=== PATIENT | female | born 1990 | race Caucasian/White ===

== ENCOUNTER 2020-04-12 13:19 | Emergency (ER) | payer OTHER ==
[~2020-04-12] VITALS: Ht 167.6 cm; Wt 97.1 kg
[2020-04-12 13:23] VITALS: BP 162/80
[2020-04-12] MEDS ORDERED: ONDANSETRON 4 MG ODT PO ONE (15:15)
[2020-04-12] MEDS ORDERED: KETOROLAC 30 MG/ML VIAL IM ONE (15:15)
[2020-04-12] MEDS ORDERED: NACL 0.9% 1,000 ML IV ONE (15:35)
--- NOTE | 2020-04-12 15:44 | NUR ---
Patient taken to CT via wheelchair
--- NOTE | 2020-04-12 15:45 | NUR ---
LABS DRAWN AND SENT TO LAB TO [facility]
--- NOTE | 2020-04-12 15:50 | NUR ---
29 Y/O F BIB SELF C/O LEFT FLANK PAIN X 6 HRS. PT STATES THAT TODAY AT 10AM, SHE EXPERIENCED 10/10 LEFT FLANK PAIN, DULL/CONSTANT THAT RADIATES TO HER LEFT ABDOMEN. PT ALSO STATES ASSOCIATED NAUSEA. PT STATES SHE TOOK TYLENOL X 2 FOR PAIN MGMT AND HAD 3 EPISODES OF VOMITING SHORTLY AFTER. PT STATES SHE HAD TOTAL VOMITTING X 7. DENIES BURNING/PAINFUL URINATION, DIZZINESS, FEVER, CHILLS. PT IS SITTING IN CHAIR GUARDING LEFT ABDOMEN AREA. PMH: FIBROADENOMA NKA MEDS: DENIES
--- NOTE | 2020-04-12 15:50 | NUR ---
Note undone in EDM - 04/12/20 at 1633 by HALEY 29 Y/O F BIB SELF C/O LEFT FLANK PAIN X 6 HRS. PT STATES THAT TODAY AT 10AM, SHE EXPERIENCED 10/10 LEFT FLANK PAIN, DULL/CONSTANT THAT RADIATES TO HER LEFT ABDOMEN. PT ALSO STATES ASSOCIATED NAUSEA. PT DID NOT TAKE ANY MEDICATION FOR HER PAIN. DENIES BURNING/PAINFUL URINATION, DIZZINESS, VOMITING, FEVER, CHILLS, CP, SOB. PT IS SITTING CHAIR GUARDING LEFT ABDOMEN AREA. PMH: FIBROADENOMA NKA MEDS: DENIES
[2020-04-12 16:17] LABS: EOSINOPHILS % (AUTO) 0.1 % (0.0-4.0); HEMATOCRIT 39.6 % (36-48); HEMOGLOBIN 13.3 g/dL (12.0-16.0); LYMPHOCYTES # (AUTO) 0.7 K/uL (2.5-16.5); LYMPHOCYTES % (AUTO) 5.9 % (20.5-51.1); MEAN CORPUSCULAR HEMOGLOBIN 30 pg (27-31); MEAN CORPUSCULAR HGB CONC 34 g/dL (33-37); MEAN CORPUSCULAR VOLUME 89.5 fL (80-94); MONOCYTES # (AUTO) 0.3 K/uL (0.8-1.0); MONOCYTES % (AUTO) 2.1 % (1.7-9.3); NEUTROPHILS # (AUTO) 11.1 K/uL (1.8-7.7); NEUTROPHILS % (AUTO) 91.9 % (42.2-75.2); PLATELET COUNT (AUTO) 180 K/uL (140-450); RED BLOOD CELL COUNT(AUTO) 4.42 MIL/uL (4.20-5.40); RED CELL DISTRIBUTION WIDTH 12.6 % (11.6-13.7); WHITE BLOOD COUNT (AUTO) 12.1 K/uL (4.8-10.8)
[2020-04-12 16:33] LABS: ALBUMIN 4.2 g/dL (3.4-5.0); ANION GAP 15.1 (8-16); CARBON DIOXIDE 23.8 mmol/L (21-32); CREATININE 0.9 mg/dL (0.6-1.3); POTASSIUM 3.9 mmol/L (3.5-5.1); TOTAL BILIRUBIN 0.9 mg/dL (0.0-1.0)
--- NOTE | 2020-04-12 16:45 | NUR ---
IV d/c 2x2 gauze placed to IV site. Bleeding controlled
[2020-04-12 16:46] VITALS: BP 116/66
--- NOTE | 2020-04-12 16:46 | NUR ---
Patient discharged with v/s stable. Written and verbal after care instructions given and explained. Patient alert, oriented and verbalized understanding of instructions. Ambulatory with steady gait. All questions addressed prior to discharge. ID band removed. Patient advised to follow up with PMD. Rx of Ibuprofen 600mg and [place] 5mg-325mg given. Patient educated on indication of medication including possible reaction and side effects. Opportunity to ask questions provided and answered.
== END 2020-04-12 16:46 | disposition home or self-care (01) ==
LOC: MED 13:19
DX: N20.0 Calculus of kidney (principal); M54.9 Dorsalgia, unspecified; F12.10 Cannabis abuse, uncomplicated
CPT/HCPCS: 36415; 74176; 80053; 81002; 81025; 83690; 84703; 85025; 96372; 99284; J1885; Q0162